=== PATIENT | male | born 1990 | race Caucasian/White ===

== ENCOUNTER 2018-10-02 05:36 | Emergency (ER) | payer MEDICAID ==
[~2018-10-02] VITALS: Ht 182.9 cm; Wt 63.6 kg
[2018-10-02 05:38] VITALS: Ht 182.9 cm; Wt 63.6 kg
[2018-10-02] MEDS ORDERED: ZYRTEC10 MG PO (05:39)
[2018-10-02] MEDS ORDERED: HYDROCODON-ACE1 EAC7 PO (06:50)
[2018-10-02 07:07] VITALS: BP 138/77
== END 2018-10-02 07:07 | disposition home or self-care (01) ==
LOC: D.ER 05:36
DX: T14.8XXA Other injury of unspecified body region, initial encounter (principal); X58.XXXA Exposure to other specified factors, initial encounter; Y93.89 Activity, other specified; Y92.9 Unspecified place or not applicable; S09.90XA Unspecified injury of head, initial encounter; V49.9XXA Car occupant (driver) (passenger) injured in unspecified traffic accident, initial encounter; Y92.410 Unspecified street and highway as the place of occurrence of the external cause